=== PATIENT | male | born 1945 | race Caucasian/White ===

== ENCOUNTER 2016-10-21 07:26 | Emergency (ER) | payer MEDICARE ==
[2016-10-21 07:59] LABS: PH,URINE 6.5 (5.0 - 9.0); URINE BILIRUBIN NEGATIVE (NEGATIVE); URINE BLOOD TRACE (NEGATIVE); URINE GLUCOSE (UA) NORMAL (NORMAL); URINE KETONE NEGATIVE (NEGATIVE); URINE LEUKOCYTE ESTERASE TRACE (NEGATIVE); URINE NITRATE NEGATIVE (NEGATIVE); URINE PROTEIN NEGATIVE (NEGATIVE); UROBILINOGEN NORMAL mg/dL (<1.0)
[2016-10-21 08:27] LABS: URINE RBC 0-5 /[HPF] (0-2); URINE WBC 0-5 /[HPF] (0-3)
== END 2016-10-21 21:32 | disposition home or self-care (01) ==
LOC: ER 07:26
PROVIDERS: General Practice
DX: N40.1 Benign prostatic hyperplasia with lower urinary tract symptoms (principal); R33.9 Retention of urine, unspecified; Z87.442 Personal history of urinary calculi; I51.9 Heart disease, unspecified; Z95.1 Presence of aortocoronary bypass graft; Z90.49 Acquired absence of other specified parts of digestive tract; Z88.2 Allergy status to sulfonamides; Z79.82 Long term (current) use of aspirin; Z79.899 Other long term (current) drug therapy; S37.39XA Other injury of urethra, initial encounter; Y84.6 Urinary catheterization as the cause of abnormal reaction of the patient, or of later complication, without mention of misadventure at the time of the procedure
CPT/HCPCS: 51702; 74150; 81001; 96374; 96375; 99070; 99283-25; 99284; J1170